=== PATIENT | male | born 1985 | race African-American/Black ===

== ENCOUNTER 2024-05-22 12:14 | Emergency (ER) | payer MEDICAID ==
[~2024-05-22] VITALS: Ht 190.5 cm; Wt 188.0 kg
[2024-05-22 12:25] VITALS: O2SAT 97
[2024-05-22 14:40] VITALS: BP 160/102; PULSE 88; RESP 16; TEMP 36.66960; O2SAT 100
[2024-05-22] MEDS: IBUPROFEN 400MG TABLET PO ONE (15:30)
[2024-05-22] MEDS ORDERED: ACET-2708 MT (16:38)
== END 2024-05-22 17:13 | disposition home or self-care (01) ==
LOC: ER 12:14
DX: M79.672 Pain in left foot (principal); M79.89 Other specified soft tissue disorders
CPT/HCPCS: 73630; 29515; 99283; Z7610

== ENCOUNTER 2024-05-24 17:53 | Emergency (ER) | payer MEDICAID ==
[~2024-05-24] VITALS: Ht 188 cm; Wt 159.0 kg
[~2024-05-24 17:53] MED LIST: ACET-2708 MT
[2024-05-24 18:09] VITALS: O2SAT 98
[2024-05-24] MEDS: IBUPROFEN 400MG TABLET PO ONE (21:54)
[2024-05-24 21:55] VITALS: BP 159/98; PULSE 92; RESP 20; TEMP 37.05852; O2SAT 98
[2024-05-24] MEDS: ACETAMINOPHEN 325MG TABLET PO ONE (21:55)
== END 2024-05-24 22:04 | disposition home or self-care (01) ==
LOC: ER 17:53
DX: M79.671 Pain in right foot (principal)
CPT/HCPCS: 73630; 99283; Z7610